=== PATIENT | male | born 1955 | race Caucasian/White ===

== ENCOUNTER 2021-02-10 15:19 | Emergency (ER) | payer MEDICARE, BC ==
[2021-02-10] MEDS ORDERED: Morphine 2 MG/ML SYRINGE IVPUSH ONE (15:36)
[2021-02-10] MEDS ORDERED: Ondansetron 4 MG/2 ML SDV IVPUSH ONE (15:36)
[2021-02-10 15:43] VITALS: BP 107/87; PULSE 107
--- NOTE | 2021-02-10 15:53 | EDM.PDOC ---
ED HPI GENERAL MEDICAL PROBLEM - General Chief Complaint: Upper Extremity Injury/Pain Stated Complaint: cut finger tips off Time Seen by Provider: 02/10/21 15:32 Source of Information: Reports: Patient History Limitations: Reports: No Limitations - History of Present Illness INITIAL COMMENTS - FREE TEXT/NARRATIVE: This 65 yo male patient reports to the ED due to cutting his left hand with a saw. The patient was making a toy box when he got his left hand under the saw cutting off his distal 2nd, distal 3rd and distal 5th fingers. The patient did bring the 3rd and 5th fingertips with him to the ED. The bleeding was controlled prior to arrival in the ED. Onset: Today Duration: Minutes: Location: Reports: Upper Extremity, Left Quality: Reports: Ache Severity: Moderate Improves with: Reports: None Worsens with: Reports: None Context: Reports: Other Associated Symptoms: Reports: No Other Symptoms - Related Data Allergies Allergy/AdvReac Type Severity Reaction Status Date / Time No Known Allergies Allergy Verified 02/10/21 15:35 Home Meds: Home Meds Multivitamin [Multi-Vitamin Daily] 1 each PO DAILY 05/16/14 [History] Aspirin [Bharti Chewable] 81 mg PO DAILY 04/08/15 [History] allopurinoL [Zyloprim] 100 mg PO DAILY 04/08/15 [History] Past Medical History Cardiovascular History: Reports: High Cholesterol, Hypertension Social & Family History - Tobacco Use Tobacco Use Status *Q: Never Tobacco User Second Hand Smoke Exposure: No - Caffeine Use Caffeine Use: Reports: None - Recreational Drug Use Recreational Drug Use: No Review of Systems - Review of Systems Review Of Systems: Comprehensive ROS is negative, except as noted in HPI. ED EXAM, GENERAL - Physical Exam Exam: See Below Exam Limited By: No Limitations General Appearance: Alert, WD/WN, Mild Distress Eye Exam: Bilateral Eye: EOMI, Normal Inspection, PERRL Ears: Normal External Exam, Normal Canal, Hearing Grossly Normal, Normal TMs Nose: Normal Inspection, Normal Mucosa, No Blood Throat/Mouth: Normal Inspection, Normal Lips, Normal Teeth, Normal Gums, Normal Oropharynx, Normal Voice, No Airway Compromise Head: Atraumatic, Normocephalic Neck: Normal Inspection, Supple, Non-Tender, Full Range of Motion Respiratory/Chest: No Respiratory Distress, Lungs Clear, Normal Breath Sounds, No Accessory Muscle Use, Chest Non-Tender Cardiovascular: Normal Peripheral Pulses, Regular Rate, Rhythm, No Edema, No Gallop, No JVD, No Murmur, No Rub (Male) Exam: Deferred Rectal (Males) Exam: Deferred Extremities: Arm Pain (left hand (distal 2nd, distal 3rd and distal 5th digits). ) Neurological: Alert, Oriented, CN II-XII Intact, Normal Cognition, Normal Gait, Normal Reflexes, No Motor/Sensory Deficits Psychiatric: Normal Affect, Normal Mood Skin Exam: Other (The patient had a complete amputation of the distal 3rd and distal 5th fingers and a partial amputation of the distal 2nd finger. ) Lymphatic: No Adenopathy Course - Vital Signs Last Recorded V/S: Last Vital Signs Temp 36.4 C 02/10/21 15:36 Pulse 107 H 02/10/21 15:36 Resp 20 02/10/21 15:36 BP 107/87 02/10/21 15:36 Pulse Ox 97 02/10/21 15:36 - Orders/Labs/Meds Meds: Medications Discontinued Medications Generic Name Dose Route Start Last Admin Trade Name Kimberlyn PRN Reason Stop Dose Admin Morphine Sulfate 2 mg 02/10/21 15:36 02/10/21 15:46 Morphine 2 Mg/Ml Syringe IVPUSH 02/10/21 15:37 2 mg ONETIME ONE Administration Ondansetron HCl 4 mg 02/10/21 15:36 02/10/21 15:46 Ondansetron 4 Mg/2 Ml Sdv IVPUSH 02/10/21 15:37 4 mg ONETIME ONE Administration Departure - Departure Time of Disposition: 15:56 Disposition: DC/Tfer to Acute Hospital 02 Condition: Fair Clinical Impression: Amputation of left index finger, Amputation of left middle finger, Amputation of left little finger - Discharge Information *PRESCRIPTION DRUG MONITORING PROGRAM REVIEWED*: Not Applicable *COPY OF PRESCRIPTION DRUG MONITORING REPORT IN PATIENT SADIQ: Not Applicable Forms: Interfacility Transfer EMTALA Care Plan Goals: Discussed the patient's history and examination with Dr. Mejias (Orthopedics with [facility] in [place]). Dr. Mejias accepted the patient for continued evaluation and management at [facility]. The patient will be transported by [facility]. Sepsis Event Note (ED) - Evaluation Sepsis Screening Result: No Definite Risk
== END 2021-02-10 16:00 ==
LOC: DL.ED 15:19
DX: S68.621A Partial traumatic transphalangeal amputation of left index finger, initial encounter (principal); S68.613A Complete traumatic transphalangeal amputation of left middle finger, initial encounter; S68.617A Complete traumatic transphalangeal amputation of left little finger, initial encounter; I10 Essential (primary) hypertension; Z79.82 Long term (current) use of aspirin; Z79.899 Other long term (current) drug therapy; W27.0XXA Contact with workbench tool, initial encounter
CPT/HCPCS: 96374; 96375; 99283; 99284; J2270; J2405

== ENCOUNTER 2024-03-28 07:28 | Day surgery (SDC) | payer MEDICARE, OTHER ==
[~2024-03-28 07:28] MED LIST: Midazolam 1 MG/ML 2 ML SDV ONE; fentaNYL 100 MCG/2 ML SDV ONE
[2024-03-28] MEDS ORDERED: Midazolam 1 MG/ML 2 ML SDV IV ONE (07:29)
[2024-03-28] MEDS ORDERED: fentaNYL 100 MCG/2 ML SDV IV ONE (07:29)
[2024-03-28] MEDS: Dextrose 5%-0.45% NaCl 1,000 ML IV SCH (07:40)
[2024-03-28] MEDS: fentaNYL 100 MCG/2 ML SDV IV ONE ×2 (08:03→08:04)
[2024-03-28] MEDS: Midazolam 1 MG/ML 2 ML SDV IV ONE ×2 (08:04→08:05)
[2024-03-28 09:30] VITALS: BP 109/65; PULSE 55
== END 2024-03-28 09:45 | disposition home or self-care (01) ==
LOC: DL.ENDO 07:28
PROVIDERS: ATTEND Internal Medicine Gastroenterology
DX: K22.2 Esophageal obstruction (principal); K31.7 Polyp of stomach and duodenum; K21.9 Gastro-esophageal reflux disease without esophagitis
CPT/HCPCS: 87077; 88305; J2250; J3010; J7042

== ENCOUNTER 2024-06-02 23:23 | Emergency (ER) | payer MEDICARE ==
[2024-06-03 01:02] LABS: BASOPHILS PERCENT AUTO 0.3 % (0.0-1.0); EOSINOPHILS PERCENT AUTO 2.5 % (1.0-3.0); HEMATOCRIT 43.2 % (40.0-54.0); HEMOGLOBIN 14.9 g/dL (14.0-18.0); LYMPHOCYTES PERCENT AUTO 37.2 % (20.5-50.1); MEAN CORPUSCULAR HEMOGLOBIN 33.3 pg (27.0-34.0); MEAN CORPUSCULAR HGB CONC 34.5 g/dL (33.0-35.0); MEAN CORPUSCULAR VOLUME 96.6 fL (80-100); MONOCYTES PERCENT AUTO 12.2 % (2-8); NEUTROPHILS PERCENT AUTO 47.8 % (42.2-75.2); PLATELET COUNT,PLT 278 10^3/uL (150-450); RED BLOOD CELL COUNT 4.47 10^6/uL (4.6-6.2); WHITE BLOOD CELL COUNT,WBC 7.6 10^3/uL (5.0-10.0)
[2024-06-03 01:05] LABS: APPEARANCE,URINE CLEAR (CLEAR); BILIRUBIN,URINE NEGATIVE (NEGATIVE); COLOR,URINE YELLOW (YELLOW); GLUCOSE,URINE NEGATIVE (NEGATIVE); KETONES,URINE NEGATIVE (NEGATIVE); LEUKOCYTE ESTERASE,URINE NEGATIVE (NEGATIVE); NITRITE,URINE NEGATIVE (NEGATIVE); OCCULT BLOOD,URINE MODERATE (NEGATIVE); PROTEIN,URINE NEGATIVE (NEGATIVE); UROBILINOGEN,URINE 0.2 mg/dL (0.2-1.0)
[2024-06-03 01:13] VITALS: BP 135/70; PULSE 70
[2024-06-03 01:17] LABS: A/G RATIO 1.2; ALANINE AMINOTRANSFERASE,ALT 26 U/L (16-63); ALKALINE PHOSPHATASE 69 U/L (46-116); ANION GAP 11.2 mEq/L (7-13); ASPARTATE AMNIOTRANSFERASE,AST 18 U/L (15-37); BILIRUBIN TOTAL 0.4 mg/dL (0.2-1.0); BLOOD UREA NITROGEN,BUN 18 mg/dL (7-18); BUN/CREATININE RATIO 12.2 (No establ ref range); CARBON DIOXIDE,CO2 30 mmol/L (21-32); CHLORIDE,CL 103 mmol/L (98-107); CREATININE 1.47 mg/dL (0.70-1.30); GLUCOSE RANDOM 99 mg/dL (70-99); POTASSIUM,K 4.2 mmol/L (3.5-5.1); PROTEIN TOTAL,TP 7.4 g/dL (6.4-8.2); SODIUM,NA 140 mmol/L (136-145)
[2024-06-03 01:23] LABS: ESTIMATED GFR 51 mL/min (>=60)
[2024-06-03 01:27] LABS: BACTERIA,URINE FEW /HPF (0-FEW/HPF); EPITHELIAL CELLS,URINE FEW /HPF (NOT SEEN); RBC,URINE 30-40 /HPF (0-5); WBC,URINE 0-5 /HPF (0-5/HPF)
[2024-06-03] MEDS: fentaNYL 100 MCG/2 ML SDV IVPUSH ONE ×2 (01:30→03:05)
[2024-06-03] MEDS: Lactated Ringers 1,000 ML IV SCH ×2 (02:24→04:13)
[2024-06-03] MEDS: Take Home: Acetaminophen/HYDROcodone 325-5 MG, 5 Tab Pack PO ONE (04:27)
== END 2024-06-03 04:44 | disposition home or self-care (01) ==
LOC: DL.ED 23:23
DX: N13.0 Hydronephrosis with ureteropelvic junction obstruction (principal); N17.9 Acute kidney failure, unspecified; I10 Essential (primary) hypertension; E78.00 Pure hypercholesterolemia, unspecified; K21.9 Gastro-esophageal reflux disease without esophagitis; Z86.16 Personal history of COVID-19; Z90.49 Acquired absence of other specified parts of digestive tract; Z79.899 Other long term (current) drug therapy; Z79.82 Long term (current) use of aspirin
CPT/HCPCS: 36415; 74176; 80053; 81001; 85025; 96361; 96374; 96376; 99284; A9270; J3010; J7120